=== PATIENT | female | born 1985 | race Caucasian/White ===

== ENCOUNTER 2016-12-20 19:21 | Emergency (ER) | payer MEDICAID ==
[~2016-12-20] VITALS: Ht 157.5 cm; Wt 75.5 kg
[~2016-12-20 19:21] MED LIST: ACET1TAB40 PO; ACYC800T57 PO; MECL25TA2 PO; NAPR-260 PO; NITR-58 PO; PRED20TA PO
[2016-12-20 20:04] VITALS: Ht 157.5 cm; Wt 75.5 kg
[2016-12-20] MEDS ORDERED: ONDANSETRON 4 MG INJ IV STA (22:04)
[2016-12-20] MEDS ORDERED: ACETAMINOPHEN 325 MG TAB PO ONE (22:30)
[2016-12-20 22:45] LABS: ADD SCAN DIFF NO; BASOPHILS % 0.4 % (0.0-2.0); EOSINOPHILS # 0.3 10^3/ul (0.0-0.5); EOSINOPHILS % 2.3 % (0.0-7.0); HEMATOCRIT 37.8 % (37.0-47.0); HEMOGLOBIN 11.7 g/dl (12.0-16.0); LYMPHOCYTES % 36.4 % (15.0-51.0); MEAN CORPUSCULAR HEMOGLOBIN 23.1 pg (29.0-33.0); MEAN CORPUSCULAR VOLUME 74.6 fl (82.0-101.0); MEAN PLATELET VOLUME 12.3 fl (7.4-10.4); MONOCYTE # 0.6 10^3/ul (0.3-0.9); MONOCYTES % 5.4 % (0.0-11.0); NEUTROPHILS % 55.1 % (39.0-77.0); PLATELET COUNT 311 10^3/UL (140-415); RED BLOOD COUNT 5.07 10^6/ul (4.20-5.40); RED CELL DISTRIBUTION WIDTH 15.3 % (11.5-14.5); WHITE BLOOD COUNT 10.9 10^3/ul (4.8-10.8)
[2016-12-20 22:54] LABS: ALBUMIN 4.5 g/dl (3.3-4.9)
[2016-12-20 22:55] LABS: POTASSIUM 3.5 mmol/L (3.5-5.1)
[2016-12-20 22:57] LABS: ALBUMIN/GLOBULIN RATIO 1.25; CREATININE 0.58 mg/dl (0.44-1.00); TOTAL PROTEIN 8.1 g/dl (6.1-8.1)
[2016-12-20 22:58] LABS: CALCIUM 9.1 mg/dl (8.4-10.2)
[2016-12-20 23:07] LABS: ADD UMIC YES; URINE BILIRUBIN (Dip) NEGATIVE (NEGATIVE); URINE BLOOD (Dip) NEGATIVE (NEGATIVE); URINE COLOR LT. YELLOW (YELLOW); URINE GLUCOSE (Dip) NEGATIVE (NEGATIVE); URINE KETONES (Dip) NEGATIVE (NEGATIVE); URINE LEUKOCYTE ESTERASE (Dip) 1+ (NEGATIVE); URINE NITRITE (Dip) NEGATIVE (NEGATIVE); URINE TOTAL PROTEIN (Dip) NEGATIVE (NEGATIVE); URINE UROBILINOGEN (Dip) 0.2 E.U./dL (0.1-1.0)
[2016-12-20 23:23] LABS: URINE RBCS 0-2 /HPF (0)
[2016-12-20 23:24] LABS: BACTERIA,URINE RARE; SQUAMOUS EPITHELIAL CELL,UR FEW
--- NOTE | 2016-12-20 23:45 | ERD ---
ER Documentation Chief Complaint Date/Time DATE: 12/20/16 TIME: 23:39 Chief Complaint RLQ abd pain x 2 days HPI Pleasant 31-year-old female presenting to emergency department today with right lower quadrant abdominal pain. Patient reports pain is throbbing, started 2 days ago 5/10 on pain scale, patient reports nausea, vomiting, patient denies dysuria, denies hematuria, patient denies that she has never had pain like this before, denies any abdominal disease. Denies enies history of cholecystitis, gastritis, peptic ulcer disease. Patient reports that she does have her appendix. ROS All systems reviewed and are negative except as per history of present illness. 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 01/10/16 Acetaminophen-Codeine* (Acetaminophen-Cod #3*) 300-30 Mg Tab, 1 TAB PO Q4H Y for PAIN, #10 TAB Prov:RUBINA LUNA MD 10/10/15 Acyclovir* (Zovirax*) 800 Mg Tablet, 800 MG PO TID for 5 Days, TAB Prov:RUBINA LUNA MD 10/10/15 Prednisone* (Prednisone*) 20 Mg Tab, 40 MG PO DAILY for 4 Days, TAB Prov:RUBINA LUNA MD 10/10/15 Allergies Allergies: Coded Allergies: No Known Drug Allergies (Verified Allergy, Unknown, 07/11/14) PMhx/Soc History of Surgery: Yes (csection) Anesthesia Reaction: No Hx Neurological Disorder: No Hx Respiratory Disorders: No Hx Cardiac Disorders: No Hx Psychiatric Problems: No Hx Miscellaneous Medical Probl: No Hx Alcohol Use: No Hx Substance Use: No Hx Tobacco Use: No Smoking Status: Never smoker Physical Exam Vitals Vital Signs Date Time Temp Pulse Resp B/P Pulse Ox O2 Delivery O2 Flow Rate FiO2 12/21/16 02:00 97.7 80 16 110/70 100 Room Air 12/20/16 20:04 98.3 88 20 129/769 100 Vitals stable, nursing notes reviewed Physical Exam Const: No acute distress Head: Atraumatic Eyes: Normal Conjunctiva ENT: Normal External Ears, Nose and Mouth. Neck: Full range of motion..~ No meningismus. Resp: Clear to auscultation bilaterally Cardio: Regular rate and rhythm, no murmurs Abd: Abdomen soft, tympanic to percussion, negative Mills sign, right lower quadrant tenderness to deep palpation. Negative CVA tenderness Skin: Back: No midline or flank tenderness Ext: Neur: Awake and alert Psych: Normal Mood and Affect Result Diagram: 12/20/164 12/20/160 Results 24 hrs Laboratory Tests Test 12/20/16 22:04 12/20/16 22:10 12/20/16 22:40 White Blood Count 10.910^3/ul Red Blood Count 5.0710^6/ul Hemoglobin 11.7g/dl Hematocrit 37.8% Mean Corpuscular Volume 74.6fl Mean Corpuscular Hemoglobin 23.1pg Mean Corpuscular Hemoglobin Concent 31.0g/dl Red Cell Distribution Width 15.3% Platelet Count 40655^3/UL Mean Platelet Volume 12.3fl Neutrophils % 55.1% Lymphocytes % 36.4% Monocytes % 5.4% Eosinophils % 2.3% Basophils % 0.4% Nucleated Red Blood Cells % 0.0/100WBC Neutrophils # 6.010^3/ul Lymphocytes # 4.010^3/ul Monocytes # 0.610^3/ul Eosinophils # 0.310^3/ul Basophils # 0.010^3/ul Nucleated Red Blood Cells # 0.010^3/ul Sodium Level 138mmol/L Potassium Level 3.5mmol/L Chloride Level 102mmol/L Carbon Dioxide Level 29mmol/L Anion Gap 11 Blood Urea Nitrogen 8mg/dl Creatinine 0.58mg/dl Glucose Level 108mg/dl Calcium Level 9.1mg/dl Total Bilirubin 0.0mg/dl Direct Bilirubin 0.00mg/dl Indirect Bilirubin 0.0mg/dl Aspartate Amino Transf (AST/SGOT) 19IU/L Alanine Aminotransferase (ALT/SGPT) 28IU/L Alkaline Phosphatase 99IU/L Total Protein 8.1g/dl Albumin 4.5g/dl Globulin 3.60g/dl Albumin/Globulin Ratio 1.25 Urine Color LT. YELLOW Urine Clarity SL HAZY Urine pH 6.0 Urine Specific Levan 1.015 Urine Ketones NEGATIVE Urine Nitrite NEGATIVE Urine Bilirubin NEGATIVE Urine Urobilinogen 0.2 E.U./dL Urine Leukocyte Esterase 1+ Urine Microscopic RBC 0-2/HPF Urine Microscopic WBC 5-10/HPF Urine Squamous Epithelial Cells FEW Urine Bacteria RARE Urine Hemoglobin NEGATIVE Urine Glucose NEGATIVE% Urine Total Protein NEGATIVE Current Medications Medications (Trade) Dose Ordered Sig/Jeannette Route PRN Reason Start Time Stop Time Status Last Admin Dose Admin Ondansetron HCl (Zofran Inj) 4 mg ONCE STAT IV 12/20/16 22:04 12/20/16 22:08 DC 12/20/16 22:13 Acetaminophen (Tylenol Tab) 650 mg ONCE ONCE PO 12/20/16 22:30 12/20/16 22:31 DC 12/20/16 22:12 Acetaminophen/ Hydrocodone Bitart ([place] (5/325)) 1 tab ONCE ONCE PO 12/21/16 00:00 12/21/16 00:01 DC 12/20/16 23:49 Interpretation text CBC shows no evidence slight anemia 11.7 with normal hematocrit and CBC elevated 10.9 Chemistry shows no evidence of significant electrolyte abnormalities or renal insufficiency Liver function tests shows no evidence of acute biliary or hepatic dysfunction Urinalysis with trace leukocytosis, and bacteria, negative nitrates suspected contamination Procedures/MDM PROCEDURE: CT ABDOMEN/PELVIS WITHOUT CONTRAST CLINICAL INDICATION: 31-year-old female with abdominal pain. TECHNIQUE: The study was performed utilizing a GE mimoOnpeed VCT 64-slice CT scanner. Direct axial sections were obtained through the abdomen and pelvis without the use of intravenous contrast material. Sagittal and coronal reformations were obtained. One or more of the following dose reduction techniques were utilized: automated exposure control, adjustment of the mA and/ or kV according to patient's size or use of iterative reconstruction technique. The images were reviewed on a PACS workstation. CTD/vol = 11.2 mGy; Total Exam DLP = 690.8 mGy-cm. COMPARISON: CT abdomen/pelvis July 11, 2016. FINDINGS: The lung bases are unremarkable. There is no evidence for significant pleural effusion. The liver has a normal size and contour without focal areas of abnormal density. No intrahepatic nor extrahepatic biliary ductal dilatation is seen. The gallbladder is partially collapsed but without evidence for calcified stones, significant wall thickening or pericholecystic fluid. The pancreas is without areas of abnormal attenuation. The spleen is identified and has a normal size without abnormal density. The adrenal glands are unremarkable. The kidneys are without abnormal density. No hydroureteronephrosis nor nephroureterolithiasis is evident. The urinary bladder contains urine. There is mild retained stool within the ascending and transverse colon without obstruction. The appendix is visualized and is without abnormal thickening or surrounding inflammatory reaction. The uterus is unremarkable. There is a right ovarian cyst measuring approximately 3.5 x 3.7 x 3.2 cm. There is no significant free fluid. The aortoiliac vessels are without aneurysmal dilatation. The osseous structures are intact. IMPRESSION: 1. No CT evidence for obstructive uropathy or renal calculi. 2. Mild retained stool without evidence of bowel obstruction. 3. No CT evidence for appendicitis. 4. Right ovarian cyst. .Paul Noe MD, MD Date Time Electronically viewed and signed by .Paul Noe MD, MD on 12/21/2016 01:10 .M/ CC: LACEY CASTRO This pleasant 31-year-old female presenting to emergency department today with right lower quadrant abdominal pain. Patient receives a complete abdominal workup with unremarkable laboratory testing, CT of abdomen documents no nephrolithiasis or renal colic. No bowel obstruction or appendicitis. Right ovary presents with cyst measuring 3.5 x 3.7 x 32.2 cm without significant free fluid, without aneurysmal dilation, osseous structures are intact. Patient has received patient responded well to Zofran and nonsteroidal anti-inflammatory medication for pain is a candidate for outpatient management and follow-up with primary gynecology. Patient given prescription of Naprosyn, I feel the patient is stable for discharge at this time. I have discussed results, examination findings, the treatment plan with the patient and family present prior to discharge. Indications for emergent reevaluation, side effects of medication were also discussed. All questions were answered. Patient verbalizes understanding and agrees with plan of care. Departure Diagnosis: Primary Impression: Ovarian cyst Condition: Good LACEY CASTRO Dec 20, 2016 23:45
[2016-12-21] MEDS ORDERED: HYDROCODONE/APAP (5/325) TAB PO ONE
--- NOTE | 2016-12-21 01:10 | RADRPT ---
PROCEDURE: CT ABDOMEN/PELVIS WITHOUT CONTRAST CLINICAL INDICATION: 31-year-old female with abdominal pain. TECHNIQUE: The study was performed utilizing a GE Flo[employer]peed VCT 64-slice CT scanner. Direct axia l sections were obtained through the abdomen and pelvis without the use of intravenous contrast mate rial. Sagittal and coronal reformations were obtained. One or more of the following dose reduction t echniques were utilized: automated exposure control, adjustment of the mA and/or kV according to pat ient's size or use of iterative reconstruction technique. The images were reviewed on a PACS workst [email or web address]. CTD/vol = 11.2 mGy; Total Exam DLP = 690.8 mGy-cm. COMPARISON: CT abdomen/pelvis July 11, 2016. FINDINGS: The lung bases are unremarkable. There is no evidence for significant pleural effusion. The liver has a normal size and contour without focal areas of abnormal density. No intrahepatic nor extrahepa tic biliary ductal dilatation is seen. The gallbladder is partially collapsed but without evidence f or calcified stones, significant wall thickening or pericholecystic fluid. The pancreas is without a reas of abnormal attenuation. The spleen is identified and has a normal size without abnormal densi ty. The adrenal glands are unremarkable. The kidneys are without abnormal density. No hydroureterone phrosis nor nephroureterolithiasis is evident. The urinary bladder contains urine. There is mild ret ained stool within the ascending and transverse colon without obstruction. The appendix is visualiz ed and is without abnormal thickening or surrounding inflammatory reaction. The uterus is unremarkab le. There is a right ovarian cyst measuring approximately 3.5 x 3.7 x 3.2 cm. There is no significant free fluid. The aortoiliac vessels are without aneurysmal dilatation. The osseous struct ures are intact. IMPRESSION: 1. No CT evidence for obstructive uropathy or renal calculi. 2. Mild retained stool without evidence of bowel obstruction. 3. No CT evidence for appendicitis. 4. Right ovarian cyst. .Paul Noe MD, MD Date Time Electronically viewed and signed by .Paul Noe MD, MD on 12/21/2016 01:10 .M/
[2016-12-21] MEDS ORDERED: NAPR-260 PO (01:46)
[2016-12-21 02:00] VITALS: BP 110/70; PULSE 80; RESP 16; TEMP 97.7
== END 2016-12-21 02:01 | disposition home or self-care (01) ==
LOC: FTE 19:21
DX: N83.201 Unspecified ovarian cyst, right side (principal); R11.2 Nausea with vomiting, unspecified
CPT/HCPCS: 74176; 80053; 81001; 85025; 96374; J2405; Z7502; Z7610; 81003

== ENCOUNTER 2017-08-29 19:39 | Emergency (ER) | payer MEDICAID ==
[~2017-08-29] VITALS: Ht 162.6 cm; Wt 75.0 kg
[2017-08-29 20:12] VITALS: Ht 162.6 cm; Wt 75.0 kg
[2017-08-29] MEDS ORDERED: KETOROLAC 30 MG INJ IV STA (20:59)
[2017-08-29] MEDS ORDERED: SOD CHLORIDE 0.9% 1,000 ML IV STA (20:59)
[2017-08-29] MEDS ORDERED: ONDANSETRON 4 MG INJ IV STA (20:59)
[2017-08-29 21:11] VITALS: BP 118/67; PULSE 84
[2017-08-29] MEDS ORDERED: METOCLOPRAMIDE 10 MG INJ IV ONE (21:30)
[2017-08-29 21:52] LABS: BASOPHIL # 0.1 10^3/ul (0.0-0.1); BASOPHILS % 0.4 % (0.0-2.0); EOSINOPHILS # 0.1 10^3/ul (0.0-0.5); EOSINOPHILS % 0.9 % (0.0-7.0); HEMATOCRIT 34.7 % (37.0-47.0); HEMOGLOBIN 11.3 g/dl (12.0-16.0); LYMPHOCYTES # 3.3 10^3/ul (0.8-2.9); LYMPHOCYTES % 26.7 % (15.0-51.0); MEAN CORPUSCULAR HEMOGLOBIN 23.1 pg (29.0-33.0); MEAN CORPUSCULAR HGB CONC 32.6 g/dl (32.0-37.0); MEAN CORPUSCULAR VOLUME 70.8 fl (82.0-101.0); MEAN PLATELET VOLUME 11.7 fl (7.4-10.4); MONOCYTE # 0.8 10^3/ul (0.3-0.9); MONOCYTES % 6.3 % (0.0-11.0); NEUTROPHIL # 8.2 10^3/ul (1.6-7.5); NEUTROPHILS % 65.3 % (39.0-77.0); PLATELET COUNT 310 10^3/UL (140-415); RED CELL DISTRIBUTION WIDTH 15.9 % (11.5-14.5); WHITE BLOOD COUNT 12.5 10^3/ul (4.8-10.8)
[2017-08-29 21:59] LABS: ADD UMIC YES; UR ASCORBIC ACID NEGATIVE (NEGATIVE); UR BILIRUBIN (Dip) NEGATIVE (NEGATIVE); UR BLOOD (Dip) NEGATIVE (NEGATIVE); UR CLARITY SLIGHTLY CLOUDY (CLEAR); UR COLOR YELLOW (YELLOW); UR GLUCOSE (Dip) NEGATIVE (NEGATIVE); UR KETONES (Dip) NEGATIVE (NEGATIVE); UR LEUKOCYTE ESTERASE (Dip) 2+ Leu/ul (NEGATIVE); UR NITRITE (Dip) NEGATIVE (NEGATIVE); UR RBC 1 /HPF (0-5); UR SPECIFIC GRAVITY (Dip) 1.014 (1.003-1.030); UR SQUAMOUS EPITHELIAL CELL FEW /HPF (FEW); UR TOTAL PROTEIN (Dip) NEGATIVE (NEGATIVE); UR UROBILINOGEN (Dip) 1+ mg/dL (NEGATIVE)
--- NOTE | 2017-08-29 22:06 | RADRPT ---
PROCEDURE: OB Ultrasound. CLINICAL INDICATION: Positive test. Pelvic pain. TECHNIQUE: Ultrasound of the pelvis was performed with transabdominal and transvaginal sonography in the axial and sagittal planes. COMPARISON: CT scan of the abdomen and pelvis dated 12/21/2016. FINDINGS: There is no intrauterine gestational sac. Endometrial thickness is 18.4 mm. The uterus measures 8.8 x 5.6 x 7.0 cm. The right ovary measures 4.0 x 3.1 x 3.9 cm. There is a benign-appearing right ovarian cyst measuri ng 3.5 x 2.9 x 3.4 cm. There are no internal echoes or septations. The left ovary measures 2.9 x 2.4 x 2.7 cm. There is a benign-appearing left ovarian cyst measuring 1.6 x 1.5 x 1.5 cm. There are no internal echoes or septations. Color Doppler and pulsed Doppler sonography demonstrate normal flow to the ovaries. There is no other pelvic mass or free fluid. IMPRESSION: 1. No intrauterine gestational sac. If the patient has a positive test, ectopic gestation cannot be excluded. 2. Benign-appearing bilateral ovarian cysts. Due to the large size of the right ovarian cyst, follo w-up pelvic ultrasound in 6 weeks is advised. 3. Otherwise unremarkable study. RPTAT: QQ .Abdoul Garcia MD, Date Time Electronically viewed and signed by .Abdoul Garcia MD, on 08/29/2017 22:06 .R/
[2017-08-29 22:17] LABS: ALBUMIN 4.1 g/dl (3.3-4.9); ALBUMIN/GLOBULIN RATIO 1.2; BILIRUBIN,INDIRECT 0.1 mg/dl (0-1.1); BILIRUBIN,TOTAL 0.1 mg/dl (0.2-1.3); CALCIUM 9.1 mg/dl (8.4-10.2); CREATININE 0.57 mg/dl (0.44-1.00); POTASSIUM 3.9 mmol/L (3.5-5.1); TOTAL PROTEIN 7.5 g/dl (6.1-8.1)
[2017-08-29] MEDS ORDERED: ACET500C5 PO (23:08)
[2017-08-29] MEDS ORDERED: METO10TA92 PO (23:09)
[2017-08-29] MEDS ORDERED: CEPH-443 PO (23:10)
[2017-08-29] MEDS ORDERED: PREN-93 PO (23:11)
--- NOTE | 2017-08-30 02:20 | ERD ---
ER Documentation Chief Complaint Chief Complaint low abd pain; vomiting x 2 days; LMP 07/25/17; not sure if HPI Patient is a 31-year-old female who presents ED for concerns of bilateral pelvic pain 3 days. Patient describes the pain to be cramping in nature. Patient states the pain is constant. Patient denies any medication for symptoms. Patient does report nausea and vomiting for the last 3 days. Patient reports approximate 3 episodes of nonbloody nonbilious vomiting today. Patient also reports feeling lightheaded. Patient denies any falls or trauma. Patient denies any fevers. Patient denies any chest pain, shortness of breath or cough. Patient does admit to urinary frequency and dysuria. Patient denies any diarrhea. Patient states her last menstrual period was 07-25-17. Patient is unsure if she is . She denies any vaginal bleeding or excessive vaginal discharge. ROS All systems reviewed and are negative except as per history of present illness. Medications Home Meds Active Scripts Vit No.124/Iron/FA ( Vitamin Tablet) 1 Each Tablet, 1 EACH PO DAILY, #30 TAB Prov:TRUONG MARTIN-C 08/29/17 Cephalexin* (Keflex*) 500 Mg Capsule, 500 MG PO TID for 7 Days, CAP Prov:TRUONG MARTINC 08/29/17 Metoclopramide* (Reglan*) 10 Mg Tablet, 10 MG PO Q6 Y for NAUSEA AND/OR VOMITING , #10 TAB Prov:TRUONG MARTINC 08/29/17 Acetaminophen* (Tylophen*) 500 Mg Capsule, 1 CAP PO Q6H Y for PAIN AND OR ELEVATED TEMP, #20 CAP Prov:TRUONG MARTINC 08/29/17 Naproxen* (Naprosyn*) 500 Mg Tablet, 500 MG PO BID Y for PAIN AND/OR INFLAMMATION, #30 TAB Prov:GLORIALACEY 12/21/16 Nitrofurantoin Monohyd Macrocr* (Macrobid*) 100 Mg Capsr, 100 MG PO BID for 14 Days, CAP Prov:SYED WORLEY PA-C 07/11/16 Naproxen* (Naprosyn*) 500 Mg Tablet, 500 MG PO BID Y for PAIN AND/OR INFLAMMATION, #30 TAB Prov:SYED WORLEY PA-C 07/11/16 Meclizine Hcl* (Antivert*) 25 Mg Tablet, 25 MG PO Q6H Y for NAUSEA AND/OR VOMITING, #20 TAB Prov:TADEO FRAGA NP 01/10/16 Acetaminophen-Codeine* (Acetaminophen-Cod #3*) 300-30 Mg Tab, 1 TAB PO Q4H Y for PAIN, #10 TAB Prov:ABDOUL LUNA MD 10/10/15 Acyclovir* (Zovirax*) 800 Mg Tablet, 800 MG PO TID for 5 Days, TAB Prov:ABDOUL LUNA MD 10/10/15 Prednisone* (Prednisone*) 20 Mg Tab, 40 MG PO DAILY for 4 Days, TAB Prov:ABDOUL LUNA MD 10/10/15 Allergies Allergies: Coded Allergies: No Known Drug Allergies (Verified Allergy, Unknown, 07/11/14) PMhx/Soc History of Surgery: Yes (csection) Anesthesia Reaction: No Hx Neurological Disorder: No Hx Respiratory Disorders: No Hx Cardiac Disorders: No Hx Psychiatric Problems: No Hx Miscellaneous Medical Probl: No Hx Alcohol Use: No Hx Substance Use: No Hx Tobacco Use: No Smoking Status: Never smoker Physical Exam Vitals Vital Signs Date Time Temp Pulse Resp B/P Pulse Ox O2 Delivery O2 Flow Rate FiO2 08/29/17 21:11 84 118/67 08/29/17 20:12 99.7 84 20 100 Physical Exam GENERAL: Well-developed, well-nourished female. Appears in no acute distress. Speaking in full sentences HEAD: Normocephalic, atraumatic. EYES: Pupils are equally reactive bilaterally. EOMs grossly intact. No conjunctival erythema. ENT: Moist mucous membranes. No uvula deviation. No kissing tonsils. NECK: Supple. No meningismus. Normal range of motion of the neck. LUNG: Clear to auscultation bilaterally. No rhonchi, wheezing, rales or coarse breath sounds. HEART: Regular rate and rhythm. No murmurs, rubs or gallops. ABDOMEN: Soft and nondistended. Tender to palpation over the suprapubic region and bilateral lower pelvic regions. Positive bowel sounds in all four quadrants. No rebound tenderness, no guarding. (-) McBurney's point tenderness. No CVA tenderness. BACK: No midline tenderness. EXTREMITIES: Equal pulses bilaterally. No peripheral clubbing, cyanosis or edema. No unilateral leg swelling. NEUROLOGIC: Alert and oriented. Moving all four extremities without any difficulty. Normal speech. Steady gait. SKIN: Normal color. Warm and dry. No rashes or lesions. Result Diagram: 08/29/17211908/29/172119 Results 24 hrs Laboratory Tests Test 08/29/17 20:55 08/29/17 21:20 Urine Color YELLOW Urine Clarity SLIGHTLY CLOUDY Urine pH 7.0 Urine Specific [place] 1.014 Urine Ketones NEGATIVEmg/dL Urine Nitrite NEGATIVEmg/dL Urine Bilirubin NEGATIVEmg/dL Urine Urobilinogen 1+mg/dL Urine Leukocyte Esterase 2+Erin/ul Urine Microscopic RBC 1/HPF Urine Microscopic WBC 11/HPF Urine Squamous Epithelial Cells FEW/HPF Urine Hemoglobin NEGATIVEmg/dL Urine Glucose NEGATIVEmg/dL Urine Total Protein NEGATIVEmg/dl White Blood Count 12.510^3/ul Red Blood Count 4.9010^6/ul Hemoglobin 11.3g/dl Hematocrit 34.7% Mean Corpuscular Volume 70.8fl Mean Corpuscular Hemoglobin 23.1pg Mean Corpuscular Hemoglobin Concent 32.6g/dl Red Cell Distribution Width 15.9% Platelet Count 24028^3/UL Mean Platelet Volume 11.7fl Neutrophils % 65.3% Lymphocytes % 26.7% Monocytes % 6.3% Eosinophils % 0.9% Basophils % 0.4% Nucleated Red Blood Cells % 0.0/100WBC Neutrophils # 8.210^3/ul Lymphocytes # 3.310^3/ul Monocytes # 0.810^3/ul Eosinophils # 0.110^3/ul Basophils # 0.110^3/ul Nucleated Red Blood Cells # 0.010^3/ul Sodium Level 141mmol/L Potassium Level 3.9mmol/L Chloride Level 107mmol/L Carbon Dioxide Level 25mmol/L Anion Gap 13 Blood Urea Nitrogen 7mg/dl Creatinine 0.57mg/dl Glucose Level 117mg/dl Calcium Level 9.1mg/dl Total Bilirubin 0.1mg/dl Direct Bilirubin 0.00mg/dl Indirect Bilirubin 0.1mg/dl Aspartate Amino Transf (AST/SGOT) 21IU/L Alanine Aminotransferase (ALT/SGPT) 41IU/L Alkaline Phosphatase 83IU/L Total Protein 7.5g/dl Albumin 4.1g/dl Globulin 3.40g/dl Albumin/Globulin Ratio 1.20 Lipase 51U/L Beta HCG, Quantitative 1913.8mIU/ml Current Medications Medications (Trade) Dose Ordered Sig/Jeannette Route PRN Reason Start Time Stop Time Status Last Admin Dose Admin Sodium Chloride (NS) 1,000 ml @ 1,000 mls/hr Q1H STAT IV 08/29/17 20:59 08/29/17 21:58 DC 08/29/17 21:22 Ondansetron HCl (Zofran Inj) 4 mg ONCE STAT IV 08/29/17 20:59 08/29/17 21:10 DC Ketorolac Tromethamine (Toradol) 30 mg ONCE STAT IV 08/29/17 20:59 08/29/17 21:10 DC Metoclopramide HCl (Reglan) 5 mg ONCE ONCE IV 08/29/17 21:30 08/29/17 21:31 DC 08/29/17 21:22 Procedures/MDM ED COURSE: The patient was stable throughout ED course. I kept the patient and/or family informed of laboratory and diagnostic imaging results throughout the ED course. DIAGNOSTIC IMAGING: Read by radiologist. DIAGNOSTIC IMAGING REPORT Patient: OTIS JETT : 1985 Age: 31 Sex: F MR #: [id number] DOS: 08/29/17 2110 Ordering MD: TRUONG MARTIN PA-C Location: [facility] Room/Bed: PROCEDURE: OB Ultrasound. CLINICAL INDICATION: Positive test. Pelvic pain. TECHNIQUE: Ultrasound of the pelvis was performed with transabdominal and transvaginal sonography in the axial and sagittal planes. COMPARISON: CT scan of the abdomen and pelvis dated 12/21/2016. FINDINGS: There is no intrauterine gestational sac. Endometrial thickness is 18.4 mm. The uterus measures 8.8 x 5.6 x 7.0 cm. The right ovary measures 4.0 x 3.1 x 3.9 cm. There is a benign-appearing right ovarian cyst measuring 3.5 x 2.9 x 3.4 cm. There are no internal echoes or septations. The left ovary measures 2.9 x 2.4 x 2.7 cm. There is a benign-appearing left ovarian cyst measuring 1.6 x 1.5 x 1.5 cm. There are no internal echoes or septations. Color Doppler and pulsed Doppler sonography demonstrate normal flow to the ovaries. There is no other pelvic mass or free fluid. IMPRESSION: 1. No intrauterine gestational sac. If the patient has a positive test, ectopic gestation cannot be excluded. 2. Benign-appearing bilateral ovarian cysts. Due to the large size of the right ovarian cyst, follow-up pelvic ultrasound in 6 weeks is advised. 3. Otherwise unremarkable study. RPTAT: QQ .Abdoul Garcia MD, MD Date Time Electronically viewed and signed by .Abdoul Garcia MD, on 08/29/2017 22:06 .R/ CC: TRUONG MARTIN PA-C PROCEDURES: None. MEDICATIONS GIVEN: Zofran, IV fluids Patient tolerated medication well with no adverse reactions. Patient reported improvement in pain. MEDICAL DECISION MAKING: This is a 31-year-old female presents with bilateral pelvic pain and suprapubic pain as well as nausea and vomiting 3 days. Patient stated her last menstrual period was on 07-25-17. Vital signs were reviewed. Patient is afebrile. Urine was positive for . Patient did not know she was prior to arrival. Blood work as well as an ultrasound was obtained. Patient's hemoglobin level was noted to be 11.3, hematocrit of 34.7. WBC count was noted to be 12.5. Elevated WBC count likely due to state and recent vomiting. CMP showed no evidence of electrolyte abnormalities, severe acidosis, alkalosis, renal failure, or liver disease. Lipase showed no evidence of acute pancreatitis. UA showed 2+ leukocyte esterase, 11 WBCs. She was noted to be O+, no indication for RhoGam at this time. Pelvic ultrasound showed 1. No intrauterine gestational sac. If the patient has a positive test, ectopic gestation cannot be excluded. 2. Benign-appearing bilateral ovarian cysts. Due to the large size of the right ovarian cyst, follow-up pelvic ultrasound in 6 weeks is advised. 3. Otherwise unremarkable study. At this time, patient's presentation is most consistent with new onset , bilateral ovarian cyst and UTI. Unable to rule out ectopic at this time. I explained to the patient at length that she will need to return in 2 days for repeat beta-hCG and ultrasound given that we are unable to ectopic at this time. Patient's beta-hCG will need to to be trended. Patient understood and agreed with this plan. Low suspicion for bowel perforation, bowel obstruction, cholecystitis, pancreatitis, diverticulitis, pyelonephritis, appendicitis, ovarian torsion, , subchorionic hematoma , spontaneous or an embryonic . PRESCRIPTIONS: Keflex, Tylenol, Reglan, vitamins DISCHARGE: At this time, patient is stable for discharge and outpatient management. Patient advised to return to the ED in 2 days for recheck including repeat beta- hCG and ultrasound. Patient was given a copy of all imaging studies and blood work obtained today. OBGYN referral information given. l. I have instructed the patient to promptly return to the ER at any time for any new or worsening symptoms including increased pain, nausea, vomiting, continued bleeding, weakness, syncope or fever. The patient and/or family expressed understanding of and agreement with this plan. All questions were answered. Home care instructions were provided. Disclaimer: Inadvertent spelling and grammatical errors are likely due to EHR/ dictation software use and do not reflect on the overall quality of patient care. Also, please note that the electronic time recorded on this note does not necessarily reflect the actual time of the patient encounter. Departure Diagnosis: Primary Impression: UTI (urinary tract infection) Urinary tract infection type: acute cystitis Hematuria presence: without hematuria Qualified Code: N30.00 - Acute cystitis without hematuria Additional Impressions: Pelvic pain affecting Trimester: first trimester Qualified Code: O26.891 - Pelvic pain affecting in first trimester, antepartum Bilateral ovarian cysts Condition: Stable Patient Instructions: Understanding Urinary Tract Infections (UTIs), , New Dx Referrals: COMM[facility] YOU HAVE RECEIVED A MEDICAL SCREENING EXAM AND THE RESULTS INDICATE THAT YOU DO NOT HAVE A CONDITION THAT REQUIRES URGENT TREATMENT IN THE EMERGENCY DEPARTMENT. FURTHER EVALUATION AND TREATMENT OF YOUR CONDITION CAN WAIT UNTIL YOU ARE SEEN IN YOUR DOCTORS OFFICE WITHIN THE NEXT 1-2 DAYS. IT IS YOUR RESPONSIBILITY TO MAKE AN APPOINTMENT FOR FOLOW-UP CARE. IF YOU HAVE A PRIMARY DOCTOR --you should call your primary doctor and schedule an appointment IF YOU DO NOT HAVE A PRIMARY DOCTOR YOU CAN CALL OUR PHYSICIAN REFERRAL HOTLINE AT IF YOU CAN NOT AFFORD TO SEE A PHYSICIAN YOU CAN CHOSE FROM THE FOLLOWING [facility] [address] [facility] [address] [facility] [facility] [address] [facility] [address] [facility] [address] [facility]. [facility] [address] [facility]. [facility] YOU HAVE RECEIVED A MEDICAL SCREENING EXAM AND THE RESULTS INDICATE THAT YOU DO NOT HAVE A CONDITION THAT REQUIRES URGENT TREATMENT IN THE EMERGENCY DEPARTMENT. FURTHER EVALUATION AND TREATMENT OF YOUR CONDITION CAN WAIT UNTIL YOU ARE SEEN IN YOUR DOCTORS OFFICE WITHIN THE NEXT 1-2 DAYS. IT IS YOUR RESPONSIBILITY TO MAKE AN APPOINTMENT FOR FOLOW-UP CARE. IF YOU HAVE A PRIMARY DOCTOR --you should call your primary doctor and schedule and appointment IF YOU DO NOT HAVE A PRIMARY DOCTOR YOU CAN CALL OUR PHYSICIAN REFERRAL HOTLINE AT . IF YOU CAN NOT AFFORD TO SEE A PHYSICIAN YOU CAN CHOSE FROM THE FOLLOWING [facility]: [facility] [address] [place] [address] [facility] [address] [place] [address] [facility] [address] [place] [address] [employer] [address] [facility] [address] [place] [address] OFFICE FAX CHRISS PEREZ [address] [place] [address] [facility] [address] [place], [place] [id number] [address] [facility], [facility] [address] [facility], [address], [place] [address] ZURDO FISHER [address] [facility], [place] [address] [facility] [address] [place] [address] [address] [facility], [facility] [address] [address]UI[address] RAHEL [address] [place] [facility] [address] [address] RASHID, [place] [address] [facility]. [address], [place] [address] [address] CRANE, [facility] [address] [place], [place] [id number] Additional Instructions: Return in 2 days for repeat BHCG and repeat US. Call your primary care doctor TOMORROW for an appointment during the next 1-2 days.See the doctor sooner or return here if your condition worsens before your appointment time. TRUONG MARTIN PA-C Aug 30, 2017 02:19
== END 2017-08-29 23:43 | disposition home or self-care (01) ==
LOC: FTE 19:39
DX: N30.00 Acute cystitis without hematuria (principal); N83.201 Unspecified ovarian cyst, right side; N83.202 Unspecified ovarian cyst, left side
CPT/HCPCS: 36415; 76801; 76817; 80053; 81001; 83690; 84702; 85025; 86900; 86901; 96374; J2765; J7030; Z7502

== ENCOUNTER 2017-08-31 16:19 | Emergency (ER) | payer MEDICAID ==
[~2017-08-31] VITALS: Ht 165.1 cm; Wt 53.2 kg
[~2017-08-31 16:19] MED LIST changes: +ACET500C5 PO; +CEPH-443 PO; +METO10TA92 PO; +PREN-93 PO
[2017-08-31 16:23] VITALS: Ht 165.1 cm; Wt 53.2 kg
[2017-08-31 18:34] LABS: BASOPHIL # 0.1 10^3/ul (0.0-0.1); BASOPHILS % 0.5 % (0.0-2.0); EOSINOPHILS # 0.1 10^3/ul (0.0-0.5); HEMATOCRIT 34.4 % (37.0-47.0); HEMOGLOBIN 11.2 g/dl (12.0-16.0); LYMPHOCYTES # 3.3 10^3/ul (0.8-2.9); LYMPHOCYTES % 28.9 % (15.0-51.0); MEAN CORPUSCULAR HEMOGLOBIN 23.2 pg (29.0-33.0); MEAN CORPUSCULAR HGB CONC 32.6 g/dl (32.0-37.0); MEAN CORPUSCULAR VOLUME 71.2 fl (82.0-101.0); MEAN PLATELET VOLUME 11.7 fl (7.4-10.4); MONOCYTE # 0.9 10^3/ul (0.3-0.9); MONOCYTES % 7.5 % (0.0-11.0); NEUTROPHIL # 7.1 10^3/ul (1.6-7.5); NEUTROPHILS % 61.8 % (39.0-77.0); PLATELET COUNT 292 10^3/UL (140-415); RED BLOOD COUNT 4.83 10^6/ul (4.20-5.40); RED CELL DISTRIBUTION WIDTH 15.9 % (11.5-14.5); WHITE BLOOD COUNT 11.5 10^3/ul (4.8-10.8)
[2017-08-31 18:43] LABS: ADD UMIC NO; UR ASCORBIC ACID NEGATIVE (NEGATIVE); UR BILIRUBIN (Dip) NEGATIVE (NEGATIVE); UR BLOOD (Dip) NEGATIVE (NEGATIVE); UR CLARITY CLEAR (CLEAR); UR COLOR YELLOW (YELLOW); UR GLUCOSE (Dip) NEGATIVE (NEGATIVE); UR KETONES (Dip) NEGATIVE (NEGATIVE); UR LEUKOCYTE ESTERASE (Dip) NEGATIVE Leu/ul (NEGATIVE); UR NITRITE (Dip) NEGATIVE (NEGATIVE); UR SPECIFIC GRAVITY (Dip) 1.016 (1.003-1.030); UR TOTAL PROTEIN (Dip) NEGATIVE (NEGATIVE); UR UROBILINOGEN (Dip) NEGATIVE (NEGATIVE)
--- NOTE | 2017-08-31 19:37 | RADRPT ---
PROCEDURE: US OB. CLINICAL INDICATION: Vaginal bleeding. Positive TECHNIQUE: Transabdominal and transvaginal views of the pelvis are available for review. COMPARISON: 08/29/2017 FINDINGS: Uterus: No evidence of masses and normal in size. Endometrial cavity: Intrauterine gestational sac is now present with the following information: Gestational sac:0.54 cm Ultrasound estimated gestational age:5 weeks Small hypoechoic subchorionic hemorrhage measures 1.2cm. No embryonic pole or yolk sac is visible. Right ovary/adnexa: Ovarian cyst is estimated at 4.3 x 4.3 x 3.1 cm, slightly larger compared to th e prior study cm. No adnexal mass lesion is seen. Left ovary/adnexa: Ovarian size normal estimated at 3.2 x 2.8 x 2.4 cm. Again demonstrated is a sim ple cyst measuring 1.9 x 1.8 x 1.5 cm No adnexal mass lesion is seen. Cul-de-sac: There is no free fluid. RPTAT:HJJR IMPRESSION: 1. Compared to 08/29/2017 there has been development of a gestational sac at an estimated gestation al age of 5 weeks. 2. Small subchorionic hemorrhage of 1.2 cm is now visualized. 3. As no embryonic pole is visible and viability is uncertain, continued follow-up with correlation to serial serum beta HCG levels and additional ultrasound as clinically warranted is recommended. 4. Bilateral ovarian cysts are again visualized stable on the left and slightly increased in size o n the right compared to 08/29/2017. Physician Radha Date Time Electronically viewed and signed by Physician Radha on 08/31/2017 19:37 JR/
[2017-08-31 19:57] VITALS: BP 128/76; PULSE 80; RESP 17; TEMP 98.2
--- NOTE | 2017-08-31 20:31 | ERD ---
ER Documentation Chief Complaint Chief Complaint [place] [facility] [place] This is a 31-year-old female presenting to emergency department for pelvic cramping while . Patient states she was told to come back to the ER for repeat ultrasound and blood work. Patient denies any vaginal bleeding. Patient states she is having intermittent menstrual cramps. Patient is a A0. Patient's last menstrual period 07/25/2017. Patient was seen here 2 days ago and the pelvic ultrasound was inconclusive. There was no IUP seen on ultrasound from 2 days ago after was reviewed by radiologist. Heart patient denies any vaginal bleeding or excessive vaginal discharge. No fevers or chills. No nausea, vomiting or diarrhea. No abdominal pain or back pain. Patient was given antibiotics for probable UTI and continues to take antibiotics as prescribed. ROS All systems reviewed and are negative except as per history of present illness. Medications Home Meds Active Scripts Vit No.124/Iron/FA ( Vitamin Tablet) 1 Each Tablet, 1 EACH PO DAILY, #30 TAB Prov:TRUONG MARTNI PA-C 08/29/17 Cephalexin* (Keflex*) 500 Mg Capsule, 500 MG PO TID for 7 Days, CAP Prov:TRUONG MARTIN PA-C 08/29/17 Metoclopramide* (Reglan*) 10 Mg Tablet, 10 MG PO Q6 Y for NAUSEA AND/OR VOMITING , #10 TAB Prov:TRUONG MARTIN PA-C 08/29/17 Acetaminophen* (Tylophen*) 500 Mg Capsule, 1 CAP PO Q6H Y for PAIN AND OR ELEVATED TEMP, #20 CAP Prov:TRUONG MARTIN PA-C 08/29/17 Naproxen* (Naprosyn*) 500 Mg Tablet, 500 MG PO BID Y for PAIN AND/OR INFLAMMATION, #30 TAB Prov:GLORIA,LACEY 12/21/16 Nitrofurantoin Monohyd Macrocr* (Macrobid*) 100 Mg Capsr, 100 MG PO BID for 14 Days, CAP Prov:SYED WORLEY PA-C 07/11/16 Naproxen* (Naprosyn*) 500 Mg Tablet, 500 MG PO BID Y for PAIN AND/OR INFLAMMATION, #30 TAB Prov:SYED WORLEY PA-C 07/11/16 Meclizine Hcl* (Antivert*) 25 Mg Tablet, 25 MG PO Q6H Y for NAUSEA AND/OR VOMITING, #20 TAB Prov:TADEO FRAGA NP 01/10/16 Acetaminophen-Codeine* (Acetaminophen-Cod #3*) 300-30 Mg Tab, 1 TAB PO Q4H Y for PAIN, #10 TAB Prov:RUBINA LUNA MD 10/10/15 Acyclovir* (Zovirax*) 800 Mg Tablet, 800 MG PO TID for 5 Days, TAB Prov:RUBINA LUNA MD 10/10/15 Prednisone* (Prednisone*) 20 Mg Tab, 40 MG PO DAILY for 4 Days, TAB Prov:RUBINA LUNA MD 10/10/15 Allergies Allergies: Coded Allergies: No Known Drug Allergies (Verified Allergy, Unknown, 07/11/14) PMhx/Soc History of Surgery: Yes (csection) Anesthesia Reaction: No Hx Neurological Disorder: No Hx Respiratory Disorders: No Hx Cardiac Disorders: No Hx Psychiatric Problems: No Hx Miscellaneous Medical Probl: No Hx Alcohol Use: No Hx Substance Use: No Hx Tobacco Use: No Smoking Status: Never smoker Physical Exam Vitals Vital Signs Date Time Temp Pulse Resp B/P Pulse Ox O2 Delivery O2 Flow Rate FiO2 08/31/17 19:57 98.2 80 17 128/76 100 Room Air 08/31/17 16:23 98.8 90 20 118/65 98 Physical Exam Const: no acute distress, alert Head: Atraumatic Eyes: Normal Conjunctiva ENT: Normal External Ears, Nose and Mouth. Neck: Full range of motion..~ No meningismus. Resp: Clear to auscultation bilaterally Cardio: Regular rate and rhythm, no murmurs Abd: Soft, non tender, non distended. Normal bowel sounds Skin: No petechiae or rashes Back: No midline or flank tenderness Ext: No cyanosis, or edema Neur: Awake and alert Psych: Normal Mood and Affect Result Diagram: 08/31/17 1820 Results 24 hrs Laboratory Tests Test 08/31/17 18:05 08/31/17 18:20 Urine Color YELLOW Urine Clarity CLEAR Urine pH 5.0 Urine Specific [place] 1.016 Urine Ketones NEGATIVEmg/dL Urine Nitrite NEGATIVEmg/dL Urine Bilirubin NEGATIVEmg/dL Urine Urobilinogen NEGATIVEmg/dL Urine Leukocyte Esterase NEGATIVELeu/ul Urine Hemoglobin NEGATIVEmg/dL Urine Glucose NEGATIVEmg/dL Urine Total Protein NEGATIVEmg/dl White Blood Count 11.510^3/ul Red Blood Count 4.8310^6/ul Hemoglobin 11.2g/dl Hematocrit 34.4% Mean Corpuscular Volume 71.2fl Mean Corpuscular Hemoglobin 23.2pg Mean Corpuscular Hemoglobin Concent 32.6g/dl Red Cell Distribution Width 15.9% Platelet Count 85777^3/UL Mean Platelet Volume 11.7fl Neutrophils % 61.8% Lymphocytes % 28.9% Monocytes % 7.5% Eosinophils % 1.0% Basophils % 0.5% Nucleated Red Blood Cells % 0.0/100WBC Neutrophils # 7.110^3/ul Lymphocytes # 3.310^3/ul Monocytes # 0.910^3/ul Eosinophils # 0.110^3/ul Basophils # 0.110^3/ul Nucleated Red Blood Cells # 0.010^3/ul Beta HCG, Quantitative 3073.5mIU/ml Procedures/MDM Patient: OTIS JETT : 1985 Age: 31 Sex: F MR #: [id number] DOS: 08/31/17 1756 Ordering MD: CLAU ERNANDEZ NP Location: [facility] Room/Bed: PROCEDURE: US OB. CLINICAL INDICATION: Vaginal bleeding. Positive TECHNIQUE: Transabdominal and transvaginal views of the pelvis are available for review. COMPARISON: 08/29/2017 FINDINGS: Uterus: No evidence of masses and normal in size. Endometrial cavity: Intrauterine gestational sac is now present with the following information: Gestational sac: 0.54 cm Ultrasound estimated gestational age: 5 weeks Small hypoechoic subchorionic hemorrhage measures 1.2cm. No embryonic pole or yolk sac is visible. Right ovary/adnexa: Ovarian cyst is estimated at 4.3 x 4.3 x 3.1 cm, slightly larger compared to the prior study cm. No adnexal mass lesion is seen. Left ovary/adnexa: Ovarian size normal estimated at 3.2 x 2.8 x 2.4 cm. Again demonstrated is a simple cyst measuring 1.9 x 1.8 x 1.5 cm No adnexal mass lesion is seen. Cul-de-sac: There is no free fluid. RPTAT:HJJR IMPRESSION: 1. Compared to 08/29/2017 there has been development of a gestational sac at an estimated gestational age of 5 weeks. 2. Small subchorionic hemorrhage of 1.2 cm is now visualized. 3. As no embryonic pole is visible and viability is uncertain, continued follow -up with correlation to serial serum beta HCG levels and additional ultrasound as clinically warranted is recommended. 4. Bilateral ovarian cysts are again visualized stable on the left and slightly increased in size on the right compared to 08/29/2017. MDM: This is a 31-year-old female presenting to the emergency department for pelvic cramping while . Patient was told to return to the ER in 2 days for repeat ultrasound and blood work. CBC is unremarkable for severe infection or anemia. Beta-hCG is 3073.5. Urine is negative for infection. OB ultrasound reviewed by radiologist as compared to 08/29/2017 there has been development of a gestational sac at an estimated gestational age of 5 weeks. Small subchorionic hemorrhage of 1.2 cm is now visualized. As no embryonic pole is visible and viability is uncertain, continued follow-up with correlation to serial serum beta-hCG levels and additional ultrasound as clinically warranted is recommended. Bilateral ovarian cysts are again visualized stable on the left and slightly increased in size on the right compared to 08/29/2017. Discussed findings with patient. Instructed patient to return to the ED in 2 days for repeat ultrasound and blood work. Patient verbalizes understanding. Differential diagnosis includes but not limited to ectopic , threatened , missed , normal , subchorionic hemorrhage , ruptured ovarian cyst, UTI or pyelonephritis. Instructed patient to return in 2 days for repeat lab work and ultrasound. Patient is appropriate for outpatient management. Instructed patient to follow- up here in the ED in 2 days. Return to ED sooner for any high fever, chest pain , difficulty breathing, shortness breath, wheezing, vomiting, diarrhea, abdominal pain or any new or worsening symptoms. Patient verbalizes understanding. All questions answered at discharge. Azeri translation used during this encounter. Disclaimer: Inadvertent spelling and grammatical errors are likely due to EHR/ dictation software use and do not reflect on the overall quality of patient care. Also, please note that the electronic time recorded on this note does not necessarily reflect the actual time of the patient encounter. Departure Diagnosis: Primary Impression: Pelvic pain affecting Trimester: first trimester Qualified Code: O26.891 - Pelvic pain affecting in first trimester, antepartum Condition: Stable Patient Instructions: , New Dx, , Established, Normal Symptoms Referrals: [facility] [employer] [address] [facility] [address] [place] [address] OFFICE FAX , [facility] [address] [place] [address] [address]. RAYMUNDO DEVERS [address] [place] [address] DR PUCKETT, [facility] [address] [facility], [address], [facility] [address] [address] LOBO [facility] [address] [place] [address] [facility] [address] [place] [address] [facility] [address] - [address] RUIZ RAHEL [address], [facility] [address] [address] RASHID, KAM [address] [facility]. [address] [address] [address] CRANE, [facility] [address] [place], [place] [id number] [facility] () Usted se nieto hecho un examen mdico de control que le indica que no est en susu condicin que requiera tratamiento urgente en el Departamento de Emergencia. Un estudio ms profundo y el tratamiento de tucker condicin pueden esperar sin ningn riesgo hasta que usted sea atendida/o en el consultorio de tucker mdico o susu cl michelle. Es responsabilidad suya arreglar susu augustine para el seguimiento del brenda. MANEJO DE CONDICIONES NO URGENTES EN EL FUTURO 1) Si usted tiene un mdico de atencin primaria: Usted debera llamar a tucker mdico de atencin primaria antes de venir al departamento de emergencia. Despus de las horas de consultorio, tucker doctor o tucker asociado/a est disponible por telfono. El mdico o enfermero de barbara en el servicio telefnico puede asesorarle por geno medio para atender el problema, o brenda contrario se puede programar susu augustine. 2) Si usted no tiene un mdico de atencin primaria: Llame al mdico o clnica de referencia que aparece abajo tyson las horas de consultorio para hacer susu augustine para que le vean. CLINICAS: [facility] [phone] [address] [facility] [phone] [address] [facility]. [facility] [phone] [address] [facility]. [place] [address] [phone] [facility] [place] [address] [phone] [facility]. [phone] [facility] () Usheather se nieto hecho un examen mdico de control que le indica que no est en susu condicin que requiera tratamiento urgente en el Departamento de Emergencia. Un estudio ms profundo y el tratamiento de tucker condicin pueden esperar sin ningn riesgo hasta que usted sea atendida/o en el consultorio de tucker mdico o susu cl michelle. Es responsabilidad suya arreglar susu augustine para el seguimiento del brenda. MANEJO DE CONDICIONES NO URGENTES EN EL FUTURO 1) Si usted tiene un mdico de atencin primaria: Usted debera llamar a tucker mdico de atencin primaria antes de venir al departamento de emergencia. Despus de las horas de consultorio, tucker doctor o tucker asociado/a est disponible por telfono. El mdico o enfermero de barbara en el servicio telefnico puede asesorarle por geno medio para atender el problema, o brenda contrario se puede programar susu augustine. 2) Si usted no tiene un mdico de atencin primaria: Llame al mdico o condado institucions de referencia que aparece abajo tyson las horas de consultorio para hacer susu augustine para que le vean. SI USTED NO PUEDE PAGAR PARA EVAN UN MEDICO puede ir a: [facility] [address] [place], [place] [phone] [place] [address] [address] [place] [address] [facility] [address] [place] [address] PARA [facility] [address] [place], [place] [phone] Additional Instructions: Volver al ER en 2 ruby para la repeticin de ultrasonido y el trabajo de dinora Vuelva a Ed para cualquier fiebre miky, dolor en el pecho, dificultad para respirar, respiracin entrecortada, sibilancias, vmitos, diarrea, dolor abdominal o cualquier sntoma nuevo o empeoramiento. CLAU SLAUGHTER NP Aug 31, 2017 20:31
== END 2017-08-31 19:57 | disposition home or self-care (01) ==
LOC: FTE 16:19
DX: O26.891 Other specified pregnancy related conditions, first trimester (principal); R10.2 Pelvic and perineal pain; Z3A.01 Less than 8 weeks gestation of pregnancy
CPT/HCPCS: 36415; 76801; 76817; 81003; 84702; 85025; Z7502

== ENCOUNTER 2017-09-02 14:40 | Emergency (ER) | payer MEDICAID ==
[~2017-09-02] VITALS: Ht 157.5 cm; Wt 78.4 kg
[2017-09-02 14:44] VITALS: Ht 157.5 cm; Wt 78.4 kg
[2017-09-02 17:13] LABS: BASOPHIL # 0.1 10^3/ul (0.0-0.1); BASOPHILS % 0.5 % (0.0-2.0); EOSINOPHILS # 0.1 10^3/ul (0.0-0.5); EOSINOPHILS % 0.7 % (0.0-7.0); HEMATOCRIT 35.9 % (37.0-47.0); HEMOGLOBIN 11.5 g/dl (12.0-16.0); LYMPHOCYTES # 3.3 10^3/ul (0.8-2.9); LYMPHOCYTES % 25.8 % (15.0-51.0); MEAN CORPUSCULAR HEMOGLOBIN 22.9 pg (29.0-33.0); MEAN CORPUSCULAR VOLUME 71.4 fl (82.0-101.0); MEAN PLATELET VOLUME 11.8 fl (7.4-10.4); MONOCYTE # 0.9 10^3/ul (0.3-0.9); MONOCYTES % 7.3 % (0.0-11.0); NEUTROPHIL # 8.4 10^3/ul (1.6-7.5); NEUTROPHILS % 65.3 % (39.0-77.0); PLATELET COUNT 293 10^3/UL (140-415); RED BLOOD COUNT 5.03 10^6/ul (4.20-5.40); RED CELL DISTRIBUTION WIDTH 15.9 % (11.5-14.5); WHITE BLOOD COUNT 12.9 10^3/ul (4.8-10.8)
[2017-09-02 17:57] LABS: ADD UMIC YES; UR ASCORBIC ACID NEGATIVE (NEGATIVE); UR BACTERIA FEW /HPF (NONE SEEN); UR BILIRUBIN (Dip) NEGATIVE (NEGATIVE); UR BLOOD (Dip) NEGATIVE (NEGATIVE); UR CLARITY CLOUDY (CLEAR); UR COLOR YELLOW (YELLOW); UR GLUCOSE (Dip) NEGATIVE (NEGATIVE); UR KETONES (Dip) NEGATIVE (NEGATIVE); UR LEUKOCYTE ESTERASE (Dip) 3+ Leu/ul (NEGATIVE); UR MUCUS FEW /HPF (NONE SEEN); UR NITRITE (Dip) NEGATIVE (NEGATIVE); UR RBC 17 /HPF (0-5); UR SPECIFIC GRAVITY (Dip) 1.014 (1.003-1.030); UR SQUAMOUS EPITHELIAL CELL MODERATE /HPF (FEW); UR TOTAL PROTEIN (Dip) NEGATIVE (NEGATIVE); UR UROBILINOGEN (Dip) NEGATIVE (NEGATIVE)
--- NOTE | 2017-09-02 18:20 | RADRPT ---
PROCEDURE: US OB. CLINICAL INDICATION: Vaginal bleeding. Positive . Pelvic pain TECHNIQUE: Transabdominal sonographic views of the pelvis are available for review. COMPARISON: 08/31/2017 FINDINGS: Uterus: No evidence of masses and normal in size estimated at 9.9 x 6.3 x 6.1 cm. Endometrial cavity: Intrauterine gestational sac is present with the following information: Gestational sac:0.69 cm Ultrasound estimated gestational age:5 weeks 2 days No embryonic pole or yolk sac is visible. Previously demonstrated subchorionic hemorrhage is not appreciated on this exam Right ovary/adnexa: Ovarian size is normal estimated at 4.5 x 4.3 cm. Simple anechoic ovarian cyst measures at 3.9 x 3.6 x 3.4 cm. No adnexal mass lesion is seen. Left ovary/adnexa: Ovarian size normal estimated at 3 x 2.6 x 2.5 cm. Simple appearing cyst measure s 1.9 x 1.7 x 1.3 cm. No adnexal mass lesion is seen. Cul-de-sac: There is no free fluid. RPTAT:HJJR IMPRESSION: 1. Intrauterine gestational sac measured at an estimated gestational age of 5 weeks 2 days. 2. As no yolk sac or embryonic pole is visible, viability is uncertain and therefore correlation wi th serial serum beta HCG levels and follow-up pelvic ultrasound is recommended. 3. Previously identified subchorionic hemorrhage is not demonstrated. 4. Bilateral simple ovarian cysts the larger on the right measuring up to 3.9 cm, not significantly changed. Physician Radha Date Time Electronically viewed and signed by Physician Radha on 09/02/2017 18:19 JR/
--- NOTE | 2017-09-02 19:32 | ERD ---
ER Documentation Chief Complaint Chief Complaint Complains of abdominal pains HPI Is a 31-year-old female presents to the ER with pelvic pain. Pelvic pain started a week ago this is her third time back to the ER to recheck her . She denies any vaginal bleeding. Her last normal menstrual period was July 25, 2017. A0. Is currently taking her antibiotic for the urinary tract infection that was found the first time she was here. She denies any urinary frequency, dysuria or back pain. ROS 12 point review of systems was done, all negative except per HPI. Medications Home Meds Active Scripts Vit No.124/Iron/FA ( Vitamin Tablet) 1 Each Tablet, 1 EACH PO DAILY, #30 TAB Prov:TRUONG MARTINC 08/29/17 Cephalexin* (Keflex*) 500 Mg Capsule, 500 MG PO TID for 7 Days, CAP Prov:TRUONG MARTIN-C 08/29/17 Metoclopramide* (Reglan*) 10 Mg Tablet, 10 MG PO Q6 Y for NAUSEA AND/OR VOMITING , #10 TAB Prov:TRUONG MARTINC 08/29/17 Acetaminophen* (Tylophen*) 500 Mg Capsule, 1 CAP PO Q6H Y for PAIN AND OR ELEVATED TEMP, #20 CAP Prov:TRUONG MARTINC 08/29/17 Naproxen* (Naprosyn*) 500 Mg Tablet, 500 MG PO BID Y for PAIN AND/OR INFLAMMATION, #30 TAB Prov:GLORIALACEY 12/21/16 Nitrofurantoin Monohyd Macrocr* (Macrobid*) 100 Mg Capsr, 100 MG PO BID for 14 Days, CAP Prov:SYED WORLEY PA-C 07/11/16 Naproxen* (Naprosyn*) 500 Mg Tablet, 500 MG PO BID Y for PAIN AND/OR INFLAMMATION, #30 TAB Prov:SYED WORLEY PA-C 07/11/16 Meclizine Hcl* (Antivert*) 25 Mg Tablet, 25 MG PO Q6H Y for NAUSEA AND/OR VOMITING, #20 TAB Prov:TADEO FRAGA NP 01/10/16 Acetaminophen-Codeine* (Acetaminophen-Cod #3*) 300-30 Mg Tab, 1 TAB PO Q4H Y for PAIN, #10 TAB Prov:RUBINA LUNA MD 10/10/15 Acyclovir* (Zovirax*) 800 Mg Tablet, 800 MG PO TID for 5 Days, TAB Prov:RUBINA LUNA MD 10/10/15 Prednisone* (Prednisone*) 20 Mg Tab, 40 MG PO DAILY for 4 Days, TAB Prov:RUBINA LUNA MD 10/10/15 Allergies Allergies: Coded Allergies: No Known Drug Allergies (Verified Allergy, Unknown, 07/11/14) PMhx/Soc History of Surgery: Yes (csection) Anesthesia Reaction: No Hx Neurological Disorder: No Hx Respiratory Disorders: No Hx Cardiac Disorders: No Hx Psychiatric Problems: No Hx Miscellaneous Medical Probl: No Hx Alcohol Use: No Hx Substance Use: No Hx Tobacco Use: No Smoking Status: Never smoker Physical Exam Vitals Vital Signs Date Time Temp Pulse Resp B/P Pulse Ox O2 Delivery O2 Flow Rate FiO2 09/02/17 14:44 98.8 86 22 115/71 98 Physical Exam GENERAL: The patient is well developed and appropriate for usual state of health , in no apparent distress. HEENT: Atraumatic. Conjunctivae are pink. Pupils equal, round, and reactive to light. Extraocular muscles are grossly intact. Bilateral tympanic membranes are clear with no evidence of erythema, effusion or dulling of the light reflex. The oropharynx is clear with no erythema or exudates. NECK: C-spine is soft and supple. There is no cervical lymphadenopathy. CHEST: Clear to auscultation bilaterally. There are no rales, wheezes or rhonchi. HEART: Regular rate and rhythm. No murmurs, clicks, rubs or gallops. ABDOMEN: Soft, nontender and nondistended. Good bowel sounds. No rebound or guarding. No gross peritonitis. No gross organomegaly or masses. No Mills sign or McBurney point tenderness. BACK: No midline or flank tenderness. EXTREMITIES: Equal pulses bilaterally. There is no peripheral clubbing, cyanosis or edema. No focal swelling or erythema. Full range of motion. Grossly neurovascularly intact. NEURO: Alert and oriented. Cranial nerves II through XII are intact. Motor strength in all 4 extremities with 5/5 strength. Sensation grossly intact. Normal speech and gait. SKIN: There is no apparent rash or petechia. The skin is warm and dry. Result Diagram: 09/02/17 1702 Results 24 hrs Laboratory Tests Test 09/02/17 17:02 09/02/17 17:20 White Blood Count 12.910^3/ul Red Blood Count 5.0310^6/ul Hemoglobin 11.5g/dl Hematocrit 35.9% Mean Corpuscular Volume 71.4fl Mean Corpuscular Hemoglobin 22.9pg Mean Corpuscular Hemoglobin Concent 32.0g/dl Red Cell Distribution Width 15.9% Platelet Count 28154^3/UL Mean Platelet Volume 11.8fl Neutrophils % 65.3% Lymphocytes % 25.8% Monocytes % 7.3% Eosinophils % 0.7% Basophils % 0.5% Nucleated Red Blood Cells % 0.0/100WBC Neutrophils # 8.410^3/ul Lymphocytes # 3.310^3/ul Monocytes # 0.910^3/ul Eosinophils # 0.110^3/ul Basophils # 0.110^3/ul Nucleated Red Blood Cells # 0.010^3/ul Beta HCG, Quantitative 5495.9mIU/ml Urine Color YELLOW Urine Clarity CLOUDY Urine pH 5.0 Urine Specific [place] 1.014 Urine Ketones NEGATIVEmg/dL Urine Nitrite NEGATIVEmg/dL Urine Bilirubin NEGATIVEmg/dL Urine Urobilinogen NEGATIVEmg/dL Urine Leukocyte Esterase 3+Erin/ul Urine Microscopic RBC 17/HPF Urine Microscopic WBC 25/HPF Urine Squamous Epithelial Cells MODERATE/HPF Urine Bacteria FEW/HPF Urine Mucus FEW/HPF Urine Hemoglobin NEGATIVEmg/dL Urine Glucose NEGATIVEmg/dL Urine Total Protein NEGATIVEmg/dl Procedures/MDM Differential diagnosis: Threatened , missed , incomplete , ectopic , molar , UTI, pyelonephritis. This is a 31 -year-old female presents to the ER with pelvic pain. At this time etiology of pelvic pain is unknown, may be normal at this stage in as it is very early. I discussed this case with laborist lead recreation assistant as there was no pole or yolk sac on ultz and stated hCG was above 1500. Patient is stable for outpatient follow-up, suspicion for ectopic is low. Patient's urinary tract infection, she is already taking antibiotics for the patient should return to ER or with her OB in 48 hours for recheck. I shared my medical decision making with the patient she understands and agrees with plan. Departure Diagnosis: Primary Impression: Encounter for laboratory test Condition: Stable Patient Instructions: : Common Questions Additional Instructions: Llame al doctor MAANA y faiza susu DAXA PARA DENTRO DE 1-2 CABRERA.Dgale a la secretaria que nosotros le instruimos hacer esta daxa.Avise o llame si tucker condicin se empeora antes de la daxa. Regresa aqui si peor o no mejor. tiene que ir con tucker ginecologa la proxima semana! ALICIA HUMPHREY Sep 02, 2017 19:32
[2017-09-02 19:39] VITALS: BP 114/70; PULSE 72; RESP 17; TEMP 99
== END 2017-09-02 19:41 | disposition home or self-care (01) ==
LOC: FTE 14:40
DX: O26.891 Other specified pregnancy related conditions, first trimester (principal); R10.2 Pelvic and perineal pain; Z3A.01 Less than 8 weeks gestation of pregnancy
CPT/HCPCS: 36415; 76801; 81001; 84702; 85025; 86900; 86901; Z7502

== ENCOUNTER 2017-10-04 17:26 | Emergency (ER) | END 2017-10-04 23:11 | disposition home or self-care (01) ==

== ENCOUNTER 2017-12-27 12:00 | Outpatient (CLI) | END 2017-12-27 14:15 | disposition home or self-care (01) ==

== ENCOUNTER 2018-02-18 18:59 | Inpatient (IN) | END 2018-02-20 12:10 | disposition home or self-care (01) | DRG 780 ==

== ENCOUNTER 2018-03-13 07:36 | Outpatient (CLI) | END 2018-03-13 15:15 | disposition home or self-care (01) ==

== ENCOUNTER 2018-03-25 07:50 | Inpatient (IN) | END 2018-03-26 14:25 | disposition home or self-care (01) | DRG 781 ==

== ENCOUNTER 2018-04-17 03:45 | Inpatient (IN) | END 2018-04-20 17:40 | disposition home or self-care (01) | DRG 766 ==

== ENCOUNTER 2019-03-04 19:39 | Emergency (ER) | payer MEDICAID ==
[~2019-03-04] VITALS: Ht 157.5 cm; Wt 77.7 kg
[~2019-03-04 19:39] MED LIST changes: -ACET1TAB40 PO; -ACET500C5 PO; -ACYC800T57 PO; -CEPH-443 PO; -MECL25TA2 PO; -METO10TA92 PO; -NAPR-260 PO; -NITR-58 PO; -PRED20TA PO
[2019-03-04 19:48] VITALS: Ht 157.5 cm; Wt 77.7 kg
[2019-03-04] MEDS ORDERED: morphine 2 MG INJ IV STA (21:23)
[2019-03-04] MEDS ORDERED: ONDANSETRON 4 MG INJ IV STA (21:23)
[2019-03-04] MEDS ORDERED: SOD CHLORIDE 0.9% 1,000 ML IV STA (21:23)
[2019-03-05] MEDS ORDERED: FER325 PO (01:35)
[2019-03-05] MEDS ORDERED: IBUP-1542 PO (01:35)
[2019-03-05 01:55] VITALS: BP 120/65; PULSE 60; RESP 18
--- NOTE | 2019-03-05 07:56 | ERD ---
ER Documentation Chief Complaint Chief Complaint PELVIC PAIN X'S 2 DAYS HPI 33-year-old female presents to the ED complaining of right lower quadrant abdominal pain x3 days. Pain has been constant, progressively worsening. Pain starts at her right lower abdomen and radiates to her right lower back. Patient denies any history of similar pain. Denies any associated nausea or vomiting. Denies any urinary symptoms. States the pain feels like "contractions ". Her last menstrual cycle was on February 13. Her menstrual cycles are usually nonpainful and regular. ROS All systems reviewed and are negative except as per history of present illness. Medications Home Meds Active Scripts Ferrous Sulfate* (Ferrous Sulfate*) 325 Mg Tabec, 325 MG PO DAILY, #90 TAB Prov:FRANDYIGRDANAEANJESSICAC 03/05/19 Ibuprofen* (Motrin*) 600 Mg Tab, 600 MG PO Q6H PRN for PAIN AND OR ELEVATED TEMP, #30 TAB Prov:JESSICA JOSE PA-C 03/05/19 Vit No.124/Iron/FA ( Vitamin Tablet) 1 Each Tablet, 1 EACH PO DAILY, #30 TAB Prov:TRUONG MARTIN PA-C 08/29/17 Allergies Allergies: Coded Allergies: No Known Drug Allergies (Verified Allergy, Unknown, 03/13/18) PMhx/Soc Medical and Surgical Hx: pt denies Medical Hx History of Surgery: Yes () Anesthesia Reaction: No Hx Neurological Disorder: No Hx Respiratory Disorders: No Hx Cardiac Disorders: No Hx Psychiatric Problems: No Hx Miscellaneous Medical Probl: No Hx Alcohol Use: No Hx Substance Use: No Hx Tobacco Use: No Smoking Status: Never smoker Physical Exam Vitals Vital Signs Date Temp Pulse Resp B/P (MAP) Pulse Ox O2 O2 Flow FiO2 Time Delivery Rate 03/05/19 98.1 60 18 120/65 100 Room Air 01:55 (83) 03/04/19 82 18 125/66 Room Air 21:58 (85) 03/04/19 98.6 87 18 117/66 99 19:48 (83) Physical Exam Const: + Moderate distress secondary to pain. Head: Atraumatic Eyes: Normal Conjunctiva ENT: Normal External Ears, Nose and Mouth. Neck: Full range of motion. No meningismus. Resp: Clear to auscultation bilaterally Cardio: Regular rate and rhythm, no murmurs Abd: Soft, + moderate diffuse abdominal tenderness, especially right lower quadrant. Negative McBurney's. Negative Mills's. No rebound, no guarding. Non distended. Normal bowel sounds Skin: No petechiae or rashes Back: No midline or flank tenderness Ext: No cyanosis, or edema Neur: Awake and alert Psych: Normal Mood and Affect Result Diagram: 03/04/19213203/04/192132 Results 24 hrs Laboratory Tests Test 03/04/19 21:33 White Blood Count 12.6 10^3/ul Red Blood Count 4.76 10^6/ul Hemoglobin 9.4 g/dl Hematocrit 31.2 % Mean Corpuscular Volume 65.5 fl Mean Corpuscular Hemoglobin 19.7 pg Mean Corpuscular Hemoglobin Concent 30.1 g/dl Red Cell Distribution Width 17.6 % Platelet Count 311 10^3/UL Mean Platelet Volume 11.3 fl Immature Granulocytes % 0.500 % Neutrophils % 61.2 % Lymphocytes % 30.7 % Monocytes % 5.5 % Eosinophils % 1.6 % Basophils % 0.5 % Nucleated Red Blood Cells % 0.0 /100WBC Immature Granulocytes # 0.060 10^3/ul Neutrophils # 7.7 10^3/ul Lymphocytes # 3.9 10^3/ul Monocytes # 0.7 10^3/ul Eosinophils # 0.2 10^3/ul Basophils # 0.1 10^3/ul Nucleated Red Blood Cells # 0.0 10^3/ul Urine Color YELLOW Urine Clarity CLEAR Urine pH 6.0 Urine Specific Browder 1.017 Urine Ketones NEGATIVE mg/dL Urine Nitrite NEGATIVE mg/dL Urine Bilirubin NEGATIVE mg/dL Urine Urobilinogen NEGATIVE mg/dL Urine Leukocyte Esterase NEGATIVE Erin/ul Urine Hemoglobin NEGATIVE mg/dL Urine Glucose NEGATIVE mg/dL Urine Total Protein NEGATIVE mg/dl Sodium Level 141 mmol/L Potassium Level 3.9 mmol/L Chloride Level 106 mmol/L Carbon Dioxide Level 26 mmol/L Anion Gap 9 Blood Urea Nitrogen 10 mg/dl Creatinine 0.63 mg/dl Est Glomerular Filtrat Rate mL/min > 60 mL/min Glucose Level 134 mg/dl Calcium Level 8.8 mg/dl Total Bilirubin 0.3 mg/dl Direct Bilirubin 0.00 mg/dl Indirect Bilirubin 0.3 mg/dl Aspartate Amino Transf (AST/SGOT) 17 IU/L Alanine Aminotransferase (ALT/SGPT) 22 IU/L Alkaline Phosphatase 76 IU/L Total Protein 7.3 g/dl Albumin 4.1 g/dl Globulin 3.20 g/dl Albumin/Globulin Ratio 1.28 Lipase 64 U/L Serum HCG, Qualitative NEGATIVE Current Medications Medications Dose Sig/Jeannette Start Time Status Last (Trade) Ordered Route PRN Stop Time Admin Dose Reason Admin Sodium 1,000 ml @ Q1H STAT 03/04/19 DC 03/04/19 Chloride 1,000 mls/hr IV 21:23 21:53 03/04/19 22:22 Morphine 2 mg ONCE STAT 03/04/19 DC 03/04/19 Sulfate IV 21: 21:54 (morphine) 03/04/19 21:25 Ondansetron 4 mg ONCE STAT 03/04/19 DC 03/04/19 HCl (Zofran IV 21: 21:53 Inj) 03/04/19 21:25 Procedures/MDM LABS CBC: + WBC of 13, likely stress reaction. Microcytic anemia with H&H of . CMP: no e/o severe acidosis, alkalosis, renal failure, diabetic ketoacidosis, liver disease Lipase: no e/o pancreatitis Urine: no e/o acute infection or hematuria hcg: negative DIAGNOSTIC IMAGING: PROCEDURE: CT abdomen and pelvis without intravenous contrast. CLINICAL INDICATION: Right lower quadrant pain. TECHNIQUE: CT of the abdomen/pelvis was performed utilizing axial images with reconstructions in sagittal and coronal planes. The administered radiation dose is CTDI 11.85 mGy, DLP 752.7 mGy-cm. One or more of the following dose reduction techniques were used: Automated exposure control, Adjustment of the mA and/or kV according to patient size, or Use of iterative reconstruction technique. DICOM images are available. COMPARISON: CT 12/21/2016 FINDINGS: Lung bases: The lung bases are clear.The heart is normal size without pericardial effusion. CT ABDOMEN: Evaluation of the abdominal viscera is limited without intravenous contrast. Gastrointestinal tract: There is no bowel obstruction.The appendix is normal size without inflammatory changes.No abnormal colonic wall thickening is identified.There is no pneumoperitoneum. Liver: The liver is normal in size. There is mild hepatic fatty infiltration. There is no intrahepatic ductal dilatation. Gallbladder: The gallbladder is grossly unremarkable. Pancreas: The pancreas is grossly unremarkable. Spleen: The spleen is normal in size. Kidneys: The kidneys are normal in size and contour.No renal calculi identified.There is no evidence of hydronephrosis. Adrenal glands: The bilateral adrenal glands are unremarkable. Retroperitoneum: There is no retroperitoneal adenopathy.The aorta is normal in caliber. CT PELVIS: Pelvic organs: The uterus is present. There is mild nonspecific endometrial fl uid. There is a 3 cm cystic lesion within the right adnexa again noted likely related to an ovarian cyst. Bladder: The bladder is unremarkable. There is no pelvic free fluid.No pelvic adenopathy is identified. Osseous structures: No destructive lytic or blastic osseous lesion is identified. IMPRESSION: Evaluation of the abdominal viscera is limited without intravenous contrast. No significant change. 1. No acute abdominal pathology. There is no evidence of acute appendicitis. 2. Mild nonspecific endometrial fluid. There is a 3 cm cystic lesion within the right adnexa again noted likely related to an ovarian cyst. Ultrasound of the pelvis may be performed as clinically warranted. 3. Mild hepatic fatty infiltration. Correlate with LFTs. PROCEDURE: US Pelvis. CLINICAL INDICATION: Right lower quadrant pain. Last menstrual period 02/05/2019 TECHNIQUE: Multiple sonographic images of the pelvis were obtained utilizing a transabdominal technique. The images were reviewed on a PACS workstation. COMPARISON: CT 03/04/2019 FINDINGS: The uterus measures 12.2 x 4.6 x 5.8 cm. The thickness of the endometrium equals 1.8 mm. Nabothian cysts in the cervix. The right ovary measures 4.7 x 2.6 x 3.7 cm and contains a 3.7 x 2.2 x 2.8 cm simple appearing cyst. The left ovary measures 2.8 x 1.7 x 2 cm and is unremarkable. Color flow and spectral analysis demonstrates arterial and venous flow in both ovaries. No free intrapelvic fluid is seen. IMPRESSION: Enlarged uterus. 3.7 cm right ovarian simple appearing cyst - almost certainly benign - no follow-up imaging of this recommended. Please see above. RPTAT: MATEUS ED COURSE: The patient was given IV fluids, morphine, Zofran The medication was well tolerated and the patient had market improvement in symptoms. The patient remained stable throughout ED course. MEDICAL DECISION MAKIN-year-old female presents with right-sided pelvic pain. Her imaging shows a 3.7 cm right ovarian cyst which could be the source of her pain. No evidence of ovarian torsion or rupture. No evidence of appendicitis, cholelithiasis, nephrolithiasis or pancreatitis. Her symptoms improved after 1 L of IV fluids and morphine. Abdominal exam is otherwise benign. She did have some microcytic anemia with a H&H of . She has a history of iron deficient anemia during her but has not taken any iron medications for the past several months. She does not feel dizzy or lightheaded. She is otherwise hemodynamically stable. Patient was discharged home with a prescription for i buprofen and iron sulfate. Recommended follow-up with the regular doctor sometime this week. Strict return precautions were discussed. PRESCRIPTIONS: Ibuprofen, ferrous sulfate SPECIALIST FOLLOW UP RECOMMENDED: None Patient has been advised to follow up with primary care in 1-2 days. Departure Diagnosis: Primary Impression: Ovarian cyst Laterality: right Qualified Codes: N83.201 - Unspecified ovarian cyst, right side Additional Impression: Anemia Anemia type: unspecified type Qualified Codes: D64.9 - Anemia, unspecified Condition: Stable Patient Instructions: Anemia, What Are Ovarian Cysts? Referrals: COMMUNITY CLINICS YOU HAVE RECEIVED A MEDICAL SCREENING EXAM AND THE RESULTS INDICATE THAT YOU DO NOT HAVE A CONDITION THAT REQUIRES URGENT TREATMENT IN THE EMERGENCY DEPARTMENT. FURTHER EVALUATION AND TREATMENT OF YOUR CONDITION CAN WAIT UNTIL YOU ARE SEEN IN YOUR DOCTORS OFFICE WITHIN THE NEXT 1-2 DAYS. IT IS YOUR RESPONSIBILITY TO MAKE AN APPOINTMENT FOR FOLOW-UP CARE. IF YOU HAVE A PRIMARY DOCTOR --you should call your primary doctor and schedule an appointment IF YOU DO NOT HAVE A PRIMARY DOCTOR YOU CAN CALL OUR PHYSICIAN REFERRAL HOTLINE AT IF YOU CAN NOT AFFORD TO SEE A PHYSICIAN YOU CAN CHOSE FROM THE FOLLOWING [facility] CLINICS [employer] [address] [facility]. [facility] [address] [facility]. [facility] [address] [facility] [facility] [address] [facility]. [place] [address] [facility] [facility]. [address] [facility]. [facility] YOU HAVE RECEIVED A MEDICAL SCREENING EXAM AND THE RESULTS INDICATE THAT YOU DO NOT HAVE A CONDITION THAT REQUIRES URGENT TREATMENT IN THE EMERGENCY DEPARTMENT. FURTHER EVALUATION AND TREATMENT OF YOUR CONDITION CAN WAIT UNTIL YOU ARE SEEN IN YOUR DOCTORS OFFICE WITHIN THE NEXT 1-2 DAYS. IT IS YOUR RESPONSIBILITY TO MAKE AN APPOINTMENT FOR FOLOW-UP CARE. IF YOU HAVE A PRIMARY DOCTOR --you should call your primary doctor and schedule and appointment IF YOU DO NOT HAVE A PRIMARY DOCTOR YOU CAN CALL OUR PHYSICIAN REFERRAL HOTLINE AT . IF YOU CAN NOT AFFORD TO SEE A PHYSICIAN YOU CAN CHOSE FROM THE FOLLOWING [facility] INSTITUTIONS: [facility] [address] [place] [address] [facility] [address] [place] [address] [facility] [address] [place] [address] DISTRIBUTION A CLASS [employer] [address] [facility] [address] [place] [address] OFFICE FAX , [facility] [address] [place], [place] [id number] [facility] [address] [place] [address] [facility] [address] [facility] [address] [address] [address] [place] [address] [facility] [address] [place], [place] [address] [address] [facility] [address] - RAHEL [address]CH[address], [facility] [address] [address], [facility] [address] [address] [address] [place] [address] Additional Instructions: Paciente aconseja volver a Departamento de urgencias inmediatamente para sntomas nuevos o que empeoran . Paciente aconseja posteriores con el PCP en 1-2 ruby. Si el paciente no tiene ninguna de atencin primaria pueden seguir con [facility] [address] [place] [address] o [facility] + [address] [address] JESSICA JOSE PA-C Mar 05, 2019 07:56
== END 2019-03-05 01:56 | disposition home or self-care (01) ==
LOC: FTE 19:39
DX: N83.201 Unspecified ovarian cyst, right side (principal); D64.9 Anemia, unspecified
CPT/HCPCS: 36415; 74176; 76856; 80053; 81003; 83690; 84703; 85025; 96374; 96375; J2270; J2405; J7030; Z7502